=== PATIENT | female | born 1980 | race Caucasian/White ===

== ENCOUNTER 2018-10-24 06:45 | Day surgery (SDC) | payer BC ==
--- NOTE | 2018-10-22 15:33 | RAD REPORT ---
EXAM DESCRIPTION: RAD - Chest Pa And Lat (2 Views) - 10/22/2018 3:17 pm CLINICAL HISTORY: preop Chest pain. COMPARISON: No comparisons FINDINGS: The lungs are clear. The heart is normal in size. No displaced fractures. IMPRESSION: No acute or concerning finding suspected.
[2018-10-22 15:49] LABS: Absolute Lymphocytes (CBC) 1.4 K/uL (0.7-4.9); Absolute Monocytes 0.4 K/uL (0.1-1.3); Absolute Neutrophil 3.4 K/uL (1.8-8.0); Basophils % 0.7 % (0-1.3); Eosinophils % 1.8 % (0-4.4); Hematocrit 42.1 % (36.0-45.0); Lymphocytes % 26.5 % (15.3-44.8); MPV 10.8 fL (7.6-11.3); Monocytes % 8.1 % (3.3-12.3); RBC Red Blood Cell Count 4.63 M/uL (3.86-4.86)
[2018-10-22 15:58] LABS: Potassium 4.1 mmol/L (3.5-5.1)
[2018-10-22 16:02] LABS: ALT/SGPT 20 U/L (12-78); AST/SGOT 15 U/L (15-37); Albumin 3.9 g/dL (3.4-5.0); Alkaline Phosphatase 60 U/L (45-117); Amylase Level 49 U/L (25-115); Bilirubin Direct < 0.1 mg/dL (0-0.2); Bilirubin Total 0.3 mg/dL (0.2-1.0); Lipase 231 U/L (73-393); Protein, Total 7.6 g/dL (6.4-8.2)
--- NOTE | 2018-10-22 17:25 | EKG ---
Test Date: 2018-10-22 Test Time: 15:06:12 Mail Rider: KT MEASUREMENT RESULTS: Intervals: Rate: 71 VT: 134 QRSD: 80 QT: 396 QTc: 430 [place]: P: 76 VT: 134 QRS: 92 T: 83 INTERPRETIVE STATEMENTS: Normal sinus rhythm Rightward axis Borderline ECG No previous ECG available for comparison Electronically Signed On 10-22-18 17:24:36 MANAGER RESIDENTIAL by Emiliano Rojas
--- OUTSIDE RECORDS SUMMARY | 2018-10-24 06:52 | XMS REPORT | Clinical Summary ---
:1980 Author Organization [facility] Address [address] [place] [id number] Care Team Providers Name Role Phone Adama Bowden DO Primary Care Provider Allergies Active Allergy Reactions Severity Noted Date Comments Metronidazole GI Intolerance Medium 08/29/2017 Medications No known medications Active Problems No known active problems Family History Medical History Relation Name Comments No Known Problems Brother No Known Problems Father No Known Problems Mother No Known Problems Sister Relation Name Status Comments Brother Alive Father Alive Mother Alive Sister Alive Social History Tobacco Use Types Packs/Day Years Used Date Never Smoker Smokeless Tobacco: Never Used Alcohol Use Drinks/Week oz/Week Comments No Sex Assigned at Date Recorded Not on file Job Start Date Occupation Industry Not on file Not on file Not on file Travel History Travel Start Travel End No recent travel history available. Last Filed Vital Signs Not on file Plan of Treatment Health Maintenance Due Date Last Done Comments CERVICAL CANCER SCREENING 1999 INFLUENZA VACCINE 04/11/2018 Results Not on fileafter 10/23/2017 Insurance Payer Benefit Plan / Group Subscriber ID Type Phone Address AETNA AETNA HMO,POS,EPO, MC/EC [address] (Home) [address] [place] [address] Advance Directives Patient has advance care planning documents on file. For more information, please contact:[id number] [place] [id number]
--- OUTSIDE RECORDS SUMMARY | 2018-10-24 06:52 | XMS REPORT ---
:1980 Author Organization [facility] Address [address] [place] [address] [address] [place] [address] Care Team Providers Name Role Phone Unavailable Unavailable Unavailable Problems This patient has no known problems. Allergies, Adverse Reactions, Alerts This patient has no known allergies or adverse reactions. Medications This patient has no known medications.
--- OUTSIDE RECORDS SUMMARY | 2018-10-24 06:52 | XMS REPORT | Clinical Summary ---
:1980 Author Organization [facility] Address [address] [place] [address] Care Team Providers Name Role Phone Syed Becker MD Primary Care Provider Allergies No Known Allergies Medications No known medications Active Problems Not on file Social History Tobacco Use Types Packs/Day Years Used Date Never Assessed Sex Assigned at Date Recorded Not on file Job Start Date Occupation Industry Not on file Not on file Not on file Travel History Travel Start Travel End No recent travel history available. Last Filed Vital Signs Not on file Plan of Treatment Not on file Results Not on fileafter 10/23/2017 Insurance Payer Benefit Plan / Group Subscriber ID Type Phone Address [employer] - [employer] AETNA HMO POS QPOS xxxxxxxxxx HMO/POS (Home) [address] [place] [phone]
[2018-10-24] MEDS ORDERED: Ringers Lactate 1,000 ML IV ONE (07:23)
[2018-10-24] MEDS ORDERED: CEFOXITIN/SWI 1gm 1 GM/10 ML SYR ONE (07:45)
[2018-10-24] MEDS ORDERED: BUPIVACAINE 0.5% PF 10 ML VIAL ONE (08:24)
[2018-10-24] MEDS ORDERED: LIDOCAINE 1% MPF 5 ML VIAL ONE (08:52)
[2018-10-24] MEDS ORDERED: ROCURONIUM 50 MG/5 ML VIAL IV ONE (08:52)
[2018-10-24] MEDS ORDERED: MIDAZOLAM HCL 2 MG/2 ML INJ ONE (08:52)
[2018-10-24] MEDS ORDERED: PROPOFOL 200 MG/20 ML VIAL IV ONE (08:52)
[2018-10-24] MEDS ORDERED: FENTANYL CITR 100 MCG/2 ML ONE (08:52)
[2018-10-24] MEDS ORDERED: ONDANSETRON 4 MG/2 ML VIAL ONE ×2 (09:29→11:11)
[2018-10-24] MEDS ORDERED: GLYCOPYRROLATE 0.2 MG/ML SYR ONE ×2 (09:29→09:41)
[2018-10-24] MEDS ORDERED: KETOROLAC 30 MG/ML INJ ONE (09:29)
[2018-10-24] MEDS ORDERED: NEOSTIGMINE 1 MG/ML -10 ML VIAL ONE (09:29)
[2018-10-24] MEDS ORDERED: DEXAMETHASONE 10 MG/ML VIAL ONE (09:31)
--- NOTE | 2018-10-24 09:41 | P.BOP ---
Preoperative diagnosis: symptomatic cholelithiasis Postoperative diagnosis: same Primary procedure: Laparoscopic Cholecystectomy Lacquer Dipping Machine Operator: Soni Montenegro (Haley) Estimated blood loss: <10cc Specimen: gb Findings: as above Anesthesia: General Complications: None Transferred to: Recovery Room Condition: Good
[2018-10-24] MEDS ORDERED: Mastisol Adhesive Liq ONE (09:46)
[2018-10-24] MEDS ORDERED: MEPERIDINE HCL 50 MG/ML AMP ONE (10:16)
--- NOTE | 2018-10-24 21:31 | OP ---
Date of Procedure: 10/24/2018 Surgeon: Bernard Roberts MD Pointer Machine Operator: VIKI Stoll. Preoperative Diagnoses: Acute cholecystitis, symptomatic cholelithiasis. Postoperative Diagnoses: Acute cholecystitis, symptomatic cholelithiasis. Procedure: Laparoscopic cholecystectomy. Anesthesia: General plus local. Findings: As above. Specimen: Gallbladder. Indication: These is the case of a 38-year-old patient, comes to us with above diagnosis. Fully exp lained the benefits, alternatives, and risks of laparoscopic, possible open cholecystectomy, which in clude but are not limited to infection, bleeding, damage to adjacent structures, anesthesia complicat ion, choledocholithiasis, bile leak, pancreatitis, [place], and even . She also understands this may not relieve the symptoms, she might need more than one surgical intervention. She understood, oscar d the consent. Description Of Procedure: The patient was brought to the operating room, placed in supine position. Anesthesia was done without complication. Abdominal area was prepped and draped in the usual steril e fashion. Marcaine 0.5% was injected for local anesthetic, followed by sharp incision of the skin i n the supraumbilical region. This patient has previous surgeries for bowel resections with midline i ncisions. So, we reopened that incision. We were very careful not to cause any enterotomies. Once we identified the fascia, we opened the perineum in the direct visualization and we put Vicryl #1 ins aníbal the fascia. Corby trocar was carefully introduced. Pneumoperitoneum was obtained. I placed 3 more trocars, 5 mm each one of them, in the right upper quadrant under direct visualization. This al lowed me to put a grasper in the fundus of the gallbladder, another grasper in the infundibulum, retr acting in the inferolateral fashion, exposing the triangle of Calot, and obtaining critical view of s afety. The cystic duct and cystic artery were clearly isolated, free circumferentially, and a connec tion between those and the gallbladder was clearly identified. I proceeded to ligate those by using at least 3 clips proximal, 1 clip distal, ligation in middle. Same was done with the cystic artery. No bile leak. No bleeding. The gallbladder was removed from liver using Bovie cauterizer and remov ed from abdominal cavity using an EndoCatch through the umbilical incision. The area was inspected o nce again. No bile leak. No bleeding. At that moment, I proceeded to remove the trocars under dire ct vision, deflated pneumoperitoneum, closed the fascia with #1 Vicryl, irrigated subcutaneous tissue , and closed that with 3-0 chromic and the skin with 3-0 chromic in a subcuticular fashion. Sponge c ounts and instrument counts were correct. The patient tolerated the procedure well. The patient was sent to recovery in stable condition. KOLBY/REDDY Voice ID: [id number] Report ID: [id number]
--- NOTE | 2018-10-24 21:31 | DS ---
Date of Discharge: 10/24/2018 Diagnoses: Acute cholecystitis, symptomatic cholelithiasis. Procedure: Laparoscopic cholecystectomy. Disposition: Home. Activity: As tolerated. No heavy lifting. Followup: Follow up in my office in 1 week. Call for appointment [phone]. Keep the area dry for 4 8 hours, then may shower. Keep the Steri-Strip intact. Medications: Include Tylenol No. 3 q.4 hours p.r.n. pain, Augmentin 875 p.o. q.12h, and Zofran 4 zamzam ry 6 hours p.r.n. nausea. KOLBY/REDDY Voice ID: [id number] Report ID: [id number]
== END 2018-10-24 12:08 | disposition home or self-care (01) ==
LOC: OR 06:45
PROVIDERS: ATTEND Surgery
PROC: 0FT44ZZ Resection of Gallbladder, Percutaneous Endoscopic Approach (ICD-10-PCS; principal; 2018-10-24 08:15)
DX: K80.12 Calculus of gallbladder with acute and chronic cholecystitis without obstruction (principal)
CPT/HCPCS: 36415; 71046; 80048; 80076; 82150; 83690; 85025; 88304; 93005; J1100; J2175; J2250; J2405; J2704; J2710; J3010